=== PATIENT | male | born 1980 | race African-American/Black ===

== ENCOUNTER 2016-03-25 23:00 | Emergency (ER) | payer SELFPAY ==
[~2016-03-25] VITALS: Ht 182.9 cm; Wt 78.0 kg
[2016-03-25 23:02] VITALS: BP 135/88; PULSE 78; RESP 18; TEMP 98; O2SAT 96
--- NOTE | 2016-03-26 00:06 | PD ---
HPI Chief Complaint: Complaint Time Seen by Provider: 00:00 Travel History International Travel<30 days: No Contact w/Intl Traveler<30days: No Traveled to known affect area: No History of Present Illness HPI 35-year-old male presents for evaluation of urethral discharge and dysuria. Symptoms started yesterday. He has a burning sensation when he urinates. Associated with yellow/white discharge. He is sexually active with only one long-term partner. He denies any scrotal pain, fevers or chills, abdominal pain , rashes. He has no other complaints at this time. [facility] Past Medical History Medical History: Denies Significant Hx Immunizations Current: Yes Tetanus Vaccination: Unknown Influenza Vaccination: No Past Surgical History Surgical History: No Previous Surgery Social History Alcohol Use: No Tobacco Use: Yes Substance Use: No Allergies-Medications (Allergen,Severity, Reaction): Coded Allergies: No Known Allergies (Unverified , 03/25/16) Reported Meds & Prescriptions Reported Meds & Active Scripts Active No Active Prescriptions or Reported Medications Review of Systems Except as stated in HPI: all other systems reviewed are Neg Physical Exam Narrative GENERAL: Well-developed well-nourished male in no acute distress SKIN: Warm and dry. CARDIOVASCULAR: Regular rate and rhythm. No murmur appreciated. RESPIRATORY: No accessory muscle use. Clear to auscultation. Breath sounds equal bilaterally. GASTROINTESTINAL: Abdomen soft, non-tender, nondistended. Hepatic and splenic margins not palpable. : Yellow discharge from the urethral meatus. There are no skin lesions. No scrotal or testicular tenderness to palpation. Data Data Last Documented VS Vital Signs Date Time Temp Pulse Resp B/P Pulse Ox O2 Delivery O2 Flow Rate FiO2 03/25/16 23:02 98.0 78 18 135/88 96 MDM Medical Decision Making Medical Screen Exam Complete: Yes Emergency Medical Condition: Yes Medical Record Reviewed: Yes Differential Diagnosis Urethritisgonococcal versus nongonococcal Narrative Course 35-year-old male with 2 days of dysuria and yellow urethral discharge. Examination is consistent with urethritis. He is being treated empirically with azithromycin and Rocephin and being discharged. He was given discharge instructions in regards to having his partner tested to avoid reinoculation. Diagnosis Primary Impression: Urethritis [facility] Additional Instructions: Follow-up at the health department or with your primary care physician for routine STD screening. Have partners tested and treated for STDs as well. No sexual intercourse until 1 week after you and your partner have been treated. Return for any emergent medical conditions. Med/Other Pt SpecificInfo: No Change to Meds Scripts No Active Prescriptions or Reported Meds Disposition: 01 DISCHARGE HOME Condition: Stable Esvin Coello Mar 26, 2016 00:06
[2016-03-26] MEDS ORDERED: SODIUM CHLORIDE 0.9% FLUSH 5 ML FLUSH IVF PRN (00:15)
[2016-03-26] MEDS ORDERED: AZITHROMYCIN PWD FOR SUSP 1 GM PACKET PO ONE (00:15)
[2016-03-26] MEDS ORDERED: cefTRIAXone 250 MG VIAL IM ONE (00:15)
[2016-03-26] MEDS ORDERED: LIDOCAINE HCL 1% 50 ML VIAL XX ONE (00:15)
[2016-03-26 02:07] LABS: CHLAMYDIA PCR NOT DETECTED (NOT DETECT); NEISSERIA PCR DETECTED (NOT DETECT)
== END 2016-03-26 00:38 | disposition home or self-care (01) ==
LOC: NEPB 23:00
DX: N34.2 Other urethritis (principal); R30.0 Dysuria; Z72.0 Tobacco use
CPT/HCPCS: 87491; 87591; 96372; 99283; J0696